=== PATIENT | male | born 1965 | race Caucasian/White ===

== ENCOUNTER 2017-01-03 10:34 | Emergency (ER) | payer SELFPAY ==
[~2017-01-03] VITALS: Ht 193 cm; Wt 102.1 kg
[2017-01-03] MEDS ORDERED: CYCLOBENZAPRINE 10 MG TABLET. PO ONE (11:15)
[2017-01-03] MEDS ORDERED: DEXAMETHASONE SOD PHOS 20 MG/5 ML VIAL. IM ONE (11:15)
[2017-01-03] MEDS ORDERED: fentaNYL PF VIAL 100 MCG/2 ML VIAL IM ONE (11:15)
--- NOTE | 2017-01-03 12:17 | RAD ---
Pelvic x-ray Indication: Pain in right hip status post fall. Technique: AP pelvis and 3 views of the right hip joint Comparison: None Findings: Status post bilateral total hip arthroplasty. No periprostatic lucency to suggest hardware loosening. SI joints within normal limits. No acute fracture or dislocation. Impression: No acute fractures or dislocation. Status post bilateral hip arthroplasty.
[2017-01-03 12:58] VITALS: BP 137/100
[2017-01-03] MEDS ORDERED: OXYC-323 PO (13:00)
--- NOTE | 2017-01-03 13:00 | PHYS DOC ---
Past Medical History Past Medical History: No Pertinent History Past Surgical History: Other Additional Past Surgical Histo: BILATERAL HIP REPLACEMENT, R KNEE SCOPE Alcohol Use: None Drug Use: None Adult General Chief Complaint Chief Complaint: HIP PAIN HPI HPI Patient is a 51 year old male with history of right hip replacement who presents today with 8 out of 10 sharp right hip pain that began yesterday after he fell going up steps. Patient denies any loss of consciousness. He states he called his orthopedic doctor who is out of town until next week on Tuesday. Patient is up and ambulating. Review of Systems Review of Systems Constitutional: Denies fever or chills [] Musculoskeletal: Reports right hip pain. Denies back pain Integument: Denies rash or skin lesions [] Neurologic: Denies headache, focal weakness or sensory changes [] All other systems were reviewed and found to be within normal limits, except as documented in this note. Current Medications Current Medications Current Medications Medications (Trade) Dose Ordered Sig/Armani Start Time Stop Time Status Last Admin Dose Admin Cyclobenzaprine HCl (Flexeril) 10 mg 1X ONCE 01/03/17 11:15 01/03/17 11:16 DC 01/03/17 11:19 10 MG Dexamethasone Sodium Phosphate (Decadron) 10 mg 1X ONCE 01/03/17 11:15 01/03/17 11:16 DC 01/03/17 11:19 10 MG Fentanyl Citrate (Fentanyl 2ml Vial) 50 mcg 1X ONCE 01/03/17 11:15 01/03/17 11:16 DC 01/03/17 11:20 50 MCG Allergies Allergies Allergies Coded Allergies Type Severity Reaction Last Updated Verified hydrocodone Allergy Unknown HIVES 01/03/17 Yes morphine Allergy Unknown RESTLESS, SOB 01/03/17 Yes tramadol Allergy Unknown HIVES 01/03/17 Yes Physical Exam Physical Exam Constitutional: Well developed, well nourished, no acute distress, non-toxic appearance. [] ] Skin: Warm, dry, no erythema, no rash. [] Back: No tenderness, no CVA tenderness. [] Extremities: Right lower extremity with no obvious deformity. Tenderness on the right lateral hip. Limited range of motion to the right hip especially flexion and internal and external rotation due to pain. +2 right pedal pulse. Cap refill less than 2 seconds the right toes. Neurologic: Alert and oriented X 3, normal motor function, normal sensory function, no focal deficits noted. [] Psychologic: Affect normal, judgement normal, mood normal. [] Current Patient Data Vital Signs Vital Signs Date Time Temp Pulse Resp B/P (MAP) Pulse Ox O2 Delivery O2 Flow Rate FiO2 01/03/17 11:20 16 Room Air 01/03/17 10:40 98.4 93 99 98.4 EKG EKG [] Radiology/Procedures Radiology/Procedures [] Course & Med Decision Making Course & Med Decision Making Pertinent Labs and Imaging studies reviewed. (See chart for details) Patient has right hip contusion after falling yesterday. Right hip x-rays interpreted by radiologist were negative for any acute findings. Discharged with oxycodone for pain. Instructed to follow-up with his own orthopedic doctor next week when he returns. Dragon Disclaimer Dragon Disclaimer This electronic medical record was generated, in whole or in part, using a voice recognition dictation system. Departure Departure Impression: Primary Impression: Fall Additional Impression: Contusion of right hip Disposition: HOME, SELF-CARE Condition: STABLE Referrals: NO PCP (PCP) HARRIET BHATT MD follow up with the Orthopedic doctor next week Patient Instructions: Contusion, [id number] Additional Instructions: You were seen for right hip contusion after falling. Your right hip x-rays were negative for any acute findings. Apply ice to the affected area. Follow-up with the orthopedic doctor in one week. Scripts Oxycodone/Apap 5-325 (PERCOCET 5-325 MG TABLET) 1 Each Tablet 1-2 TAB PO Q4-6HRS Y for PAIN, #12 TAB Prov: NATACHADANIELA SINGLETARY 01/03/17 Problem Qualifiers Primary Impression: Fall Encounter type: initial encounter Qualified Codes: W19.XXXA - Unspecified fall, initial encounter Additional Impression: Contusion of right hip Encounter type: initial encounter Qualified Codes: S70.01XA - Contusion of right hip, initial encounter NATACHADANIELA SINGLETARY Jan 03, 2017 13:00
== END 2017-01-03 13:04 | disposition home or self-care (01) ==
LOC: ER 10:34
DX: S70.01XA Contusion of right hip, initial encounter (principal); Z96.643 Presence of artificial hip joint, bilateral; Z88.5 Allergy status to narcotic agent; Z88.6 Allergy status to analgesic agent; W10.9XXA Fall (on) (from) unspecified stairs and steps, initial encounter; Y93.89 Activity, other specified; Y99.8 Other external cause status; Y92.89 Other specified places as the place of occurrence of the external cause
CPT/HCPCS: 73502; 96372; 99284; J1100; J3010